=== PATIENT | male | born 2000 | race Hispanic/Latino ===

== ENCOUNTER 2023-12-11 06:23 | Emergency (ER) | payer SELFPAY ==
[2023-12-11 06:27] VITALS: BP 101/71
[2023-12-11 07:06] LABS: % Basophils 0.7 % (0-2); % Eosinophils 4.7 % (0-6); % Immature Granulocytes 0.2 % (0-0.5); % Monocytes 6.7 % (1.7-9.3); % Neutrophils 47.7 % (42.2-75.2); Absolute Eosinophils 0.3 10^3/uL (0-0.7); Absolute Lymphocytes 2.3 10^3/uL (1.2-3.4); Absolute Monocytes 0.4 10^3/uL (0.1-0.6); Absolute Neutrophils 2.8 10^3/uL (1.4-6.5); Hemoglobin 14.3 g/dL (13.0-18.0); Mean Corp Hgb Conc. 35.8 g/dL (33.0-37.0); Mean Corpuscular Hgb 30.8 pg (27.0-31.0); Mean Platelet Volume 11.1 fL (7.4-10.4); Nucleated Red Blood Cells % 0 % (-); Platelet Count 187 10^3/uL (130-400); Red Blood Cell Count 4.65 10^6/uL (4.70-6.10); Red Cell Dist. Width 12.3 % (11.5-14.5); White Blood Cell Count 5.8 10^3/uL (4.8-10.8)
[2023-12-11 07:15] LABS: ALT (SGPT) 14 U/L (0-50); AST (SGOT) 26 U/L (17-59); Albumin 4.8 g/dl (3.5-5.0); Alkaline Phosphatase 66 U/L (38-126); Blood Urea Nitrogen 20 mg/dl (9-20); Calcium 9.3 mg/dl (8.4-10.2); Carbon Dioxide 22 mmol/L (22-30); Chloride 105 mmol/L (98-107); Glucose 118 mg/dl (70-99); Potassium 3.7 mmol/L (3.5-5.1); Sodium 137 mmol/L (135-145); Total Bilirubin 0.7 mg/dl (0.2-1.3); eGFR > 60.00
--- NOTE | 2023-12-11 07:15 | ED.GENMED ---
History of Present Illness
General
Chief Complaint: Dehydration Symptoms
Source: patient
Time Seen by Provider: 12/11/23 07:02
History of Present Illness
History of Present Illness:
23-year-old male presents to the emergency room complaining of generalized weakness, headache, body aches. Patient works outside and initially believed he was suffering from dehydration and heat exhaustion. He went home early from work 2 days ago.
Since then he has been drinking a lot of fluid, taking Tylenol and expect he will be feeling better. However he continues to feel the above symptoms today prompting his visit to the ER. Patient denies any significant medical issue. He is not
taking any prescription medications.
Past History
Past History
ED Past Medical History: Asthma and Other (Migraine headaches, Concussion X 2, Subdural hematoma)
ED Past Surgical History: Appendectomy
Social History
Tobacco: Vaping
Alcohol: None
Drug: None
Personal: Single
Living: with family
Employment: Student
Family History
Family History: Hypertension ( father)
Phy Exam
Physical Exam
Physical Exam:
General: Awake, Alert, Oriented X3. No acute distress.
Vitals: unremarkable
Head: Atraumatic
Eyes: Pupils equal, EOMI
Throat: Airway intact, no exudates
Neck: Trachea midline
Lungs: Clear and equal b/l
Heart: Regular rate, no murmurs
Abd: Soft, Nontender, No pulsatile mass
Neuro: Nonfocal
Skin: Warm, dry, no rash
Extremities: pulses equal b/l, no edema
Course
Orders/Labs/Results
Orders:
Orders
12/11/23 06:34
COVID-19 Antigen Urgent
Source: Nasal Swab
Complete Blood Count/With Diff Urgent
Comprehensive Metabolic Panel Urgent
Creatine Phosphokinase Urgent
Comment: ADD ON
12/11/23 07:15
0.9% Sodium Chloride 1000 ml [Nss] 1,000 ml IV BOLUS
Ketorolac [Toradol] 15 mg IV NOW STA
12/11/23 07:16
Add On- LAB Urgent
Tests Added?: cpk
Abnormal Lab Results
12/11/23
06:34
RBC 4.65 L 10^6/uL
(4.70-6.10)
MPV 11.1 H fL
(7.4-10.4)
Glucose 118 H mg/dl
(70-99)
12/11/23 06:34
12/11/23 06:34
Vital Signs
Initial and Last Documented VS:
Initial Vital Signs
Temp Pulse Resp BP Pulse Ox
97.9 F 65 20 101/71 100
12/11/23 06:27 12/11/23 06:27 12/11/23 06:27 12/11/23 06:27 12/11/23 06:27
Last Documented Vital Signs
Temp Pulse Resp BP Pulse Ox
97.9 F 72 16 108/54 99
12/11/23 06:27 12/11/23 09:00 12/11/23 09:00 12/11/23 09:00 12/11/23 09:00
MDM/Problems Addressed
Differential Diagnosis Includes:
Dehydration, heat exhaustion, COVID, other viral illness
MDM/Problems Addressed:
Patient appears nontoxic. His labs are all reassuring. COVID is negative. He feels somewhat better after Toradol and IV hydration. Unclear if he has a minor viral illness or this just exhausted from working out in the heat. No rash to suggest
Lyme. No known exposures. Patient stable for discharge at this time follow-up as an outpatient
*Pulse Oximetry
Patient hypoxic: no
*Critical Care Note
Total Time (30-74mins, 75-104mins- exclusive of procedures): Not Applicable
ED Attending Note
-
Portions of this chart may have been created with voice recognition software.� Occasional wrong word or��sound alike� substitutions may have occurred due to the inherent limitations of voice recognition software.
Discharge Plan
Departure
Patient Disposition: Home (Routine Discharge)
Date of Disposition: 12/11/23
Time of Disposition: 08:32
Patient with high blood pressure during this ER visit?: No
Condition: Good
Discharge Problem:
Heat exhaustion
Instructions: Heat Exhaustion and Heat Stroke (DC)
Prescriptions:
No Action
acetaminophen 500 mg Tablet
1,000 mg PO Q6H PRN (Reason: mild pain/fever)
albuterol sulfate [ProAir HFA] 90 mcg/actuation HFA aerosol inhaler
1 puff INHALATION R Q4 PRN (Reason: sob)
Referrals:
NONE,* [Family Provider] -
Stand Alone Forms: Return to Work
Interventions
Interventions:
*Risk Screen - Suicide Last Done: 12/11/23 06:27
*General Assessment Last Done: 12/11/23 06:27
*Neglect/Abuse Screening Last Done: 12/11/23 06:27
ED- Fall Risk Assessment Last Done: 12/11/23 06:27
*ED COVID-19 Vaccine History Last Done: 12/11/23 06:27
*Nursing Disposition Last Done: 12/11/23 09:54
ED- Cardiac Assessment Last Done: 12/11/23 07:35
ED- Neurological Assessment Last Done: 12/11/23 07:35
ED- Pulmonary Assessment Last Done: 12/11/23 07:35
Discharge Date and Time
Discharge Date/Time: 12/11/23 09:54
Print Language: DIVEHI
[2023-12-11 07:18] LABS: COVID-19 Antigen Negative (Negative)
[2023-12-11] MEDS: TORADOL 15 MG IV (07:26)
[2023-12-11] MEDS: NSS 1000 IV (07:31)
[2023-12-11 07:56] LABS: Creatine Phosphokinase 119 U/L (55-170)
[2023-12-11 08:00] VITALS: BP 115/67
[2023-12-11 09:00] VITALS: BP 108/54
== END 2023-12-11 09:54 | disposition home or self-care (01) ==
LOC: EMR 06:23
PROVIDERS: EMERGENCY PHYSICIAN Emergency Medicine
DX: T67.5XXA Heat exhaustion, unspecified, initial encounter (principal); X30.XXXA Exposure to excessive natural heat, initial encounter; F17.290 Nicotine dependence, other tobacco product, uncomplicated
CPT/HCPCS: 99284; 96374; 96361; 80053; 82550; 85025; 87811; 99285

== ENCOUNTER 2024-01-15 13:06 | Emergency (ER) | payer BC, SELFPAY ==
[2024-01-15 13:11] VITALS: BP 116/81
--- NOTE | 2024-01-15 13:46 | ED.GENMED ---
History of Present Illness
General
Chief Complaint: Breathing Problem
Source: patient
Exam Limitations: none
Time Seen by Provider: 01/15/24 13:26
Nursing documentation reviewed up to this point in time: agreed with
History of Present Illness
History of Present Illness:
Patient is a 23-year-old male who presents to the ER for evaluation. Patient reports he has asthma and for the past month he has had issues with asthma but but this morning despite using inhalers he had a lot of difficulty breathing. He does have
coughing episodes. He denies any runny nose sore throat. 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 Presently he is trying to find a family doctor heat. He only uses a rescue inhaler when he was a child he did have any steroid inhaler
as well. He denies any recent illness fever chills. He used his inhaler multiple times a day.
He is allergic to Decadron but cannot tolerate oral prednisone.
Past History
Past History
ED Past Medical History: Asthma and Other (Migraine headaches, Concussion X 2, Subdural hematoma)
ED Past Surgical History: Appendectomy
Social History
Tobacco: Vaping
Alcohol: None
Drug: None
Personal: Single
Living: with family
Employment: Student
Family History
Family History: Hypertension ( father)
Review of Systems
Review of Systems
Allergies reviewed?: Yes
Constitutional: Reports no symptoms; Denies fever, fatigue or chills
Respiratory: Reports cough and trouble breathing
Cardiac: Reports no symptoms
ABD/GI: Reports no symptoms
: Reports no symptoms
Musculoskeletal: Reports no symptoms
Skin: Reports no symptoms; Denies rash
Neurological: Reports no symptoms
Psychiatric: Reports no symptoms
Phy Exam
General Physical Exam
General Presentation: no apparent distress
General age: appears stated age
General Skin: warm and dry
General Habitus: normal
General Mental: alert
General Hydration: appears well hydrated
Cardiovascular Exam
Cardiovascular Exam: regular rate/rhythm, no murmur and normal peripheral pulses
Pulmonary Exam
Pulmonary Exam: no respiratory distress and other (slight insp wheezing b/l )
Neurological Exam
Neurological Exam: alert and oriented x3
Musculoskeletal Exam
Musculoskeletal Exam: full ROM
Skin Exam
Skin Exam: normal color and warm/dry
Psychiatric Exam
Psychiatric Exam: normal mood/affect
Course
Orders/Labs/Results
Orders:
Orders
01/15/24 13:45
Ipratropium/Albuterol Sulfate [Duoneb] 3 ml INH R NOW STA
Prednisone [Deltasone] 50 mg PO NOW STA
01/15/24 14:52
Albuterol Nebs [Ventolin Nebules] 2.5 mg INH R NOW STA
01/15/24 16:13
Albuterol Nebs [Ventolin Nebules] 2.5 mg INH R NOW STA
Vital Signs
Initial and Last Documented VS:
Initial Vital Signs
Temp Pulse Resp BP Pulse Ox
98.2 F 71 16 116/81 99
01/15/24 13:11 01/15/24 13:11 01/15/24 13:11 01/15/24 13:11 01/15/24 13:11
Last Documented Vital Signs
Temp Pulse Resp BP Pulse Ox
98.2 F 66 17 116/81 98
01/15/24 13:11 01/15/24 16:30 01/15/24 16:30 01/15/24 13:11 01/15/24 16:30
MDM/Problems Addressed
Differential Diagnosis Includes:
Not limited to asthma exacerbation, bronchitis viral syndrome
MDM/Problems Addressed:
Symptoms are consistent with asthma exacerbation. Patient works outside and has been having issues with asthma for the past several days that his symptoms have worsened. He presents to the ER however awake alert no acute distress afebrile
nonhypoxic nontachycardic slight wheeze. Patient did use his albuterol inhaler at home he was given several nebulizers here in the ER feeling better. He was given his oral prednisone. He has an allergy to Decadron but tolerates oral prednisone
well. This was sent to his pharmacy for the next 5 days.
*Critical Care Note
Total Time (30-74mins, 75-104mins- exclusive of procedures): Not Applicable
ED Attending Note
-
Portions of this chart may have been created with voice recognition software.� Occasional wrong word or��sound alike� substitutions may have occurred due to the inherent limitations of voice recognition software.
Discharge Plan
Departure
Patient Disposition: Home (Routine Discharge)
Date of Disposition: 01/15/24
Time of Disposition: 17:39
Patient with high blood pressure during this ER visit?: No
Condition: Fair
Covid-19: Not Applicable
Discharge Problem:
Asthma exacerbation
Instructions: Asthma, Adult (DC)
Prescriptions:
New
prednisone 50 mg tablet
50 mg PO DAILY Qty: 5 0RF
No Action
acetaminophen 500 mg Tablet
1,000 mg PO Q6H PRN (Reason: mild pain/fever)
albuterol sulfate [ProAir HFA] 90 mcg/actuation HFA aerosol inhaler
1 puff INHALATION R Q4 PRN (Reason: sob)
Referrals:
UNKNOWN - PT DOES,NOT KNOW [Family Provider] -
Stand Alone Forms: Return to Work
Activity Restrictions/Additional Instructions:
As discussed continue to use your albuterol inhaler as previously recommended. A prescription for steroids was sent to your pharmacy to take for the next 5 days start this tomorrow. Return if any worsening of symptoms. Follow up with pcp for
further management of your asthma
Discharge Date and Time
Discharge Date/Time: 01/15/24 18:05
Print Language: [place]
[2024-01-15] MEDS: DELTASONE 50 MG PO (13:53)
[2024-01-15] MEDS: DUONEB 3 ML INH (13:53)
[2024-01-15] MEDS: VENTOLIN NEBULES 2.5 MG INH ×2 (14:55→16:28)
== END 2024-01-15 18:00 | disposition home or self-care (01) ==
LOC: EMR 13:06
PROVIDERS: EMERGENCY PHYSICIAN Emergency Medicine
DX: J45.901 Unspecified asthma with (acute) exacerbation (principal); G43.909 Migraine, unspecified, not intractable, without status migrainosus; F17.290 Nicotine dependence, other tobacco product, uncomplicated; Z87.820 Personal history of traumatic brain injury; Z88.8 Allergy status to other drugs, medicaments and biological substances; Z91.048 Other nonmedicinal substance allergy status
CPT/HCPCS: 99284; 94640 ×3

== ENCOUNTER 2024-03-01 11:50 | Emergency (ER) | payer SELFPAY ==
[2024-03-01 11:55] VITALS: BP 99/72
[2024-03-01] MEDS: PERCOCET 5/325 1 TABLET PO (14:02)
[2024-03-01] MEDS: VALIUM 5 MG PO (14:03)
--- NOTE | 2024-03-01 15:52 | ED.GENMED ---
History of Present Illness
General
Chief Complaint: Musculo-Skeletal Complaint
Source: patient and records
Exam Limitations: none
Time Seen by Provider: 03/01/24 13:01
Nursing documentation reviewed up to this point in time: agreed with
History of Present Illness
History of Present Illness:
Patient is a 23-year-old male who presents to the emergency department complaining of right-sided neck pain and an inability to move his head without pain. Patient was fine yesterday and woke like this today. Patient denies fever or chills, nasal
congestion, sore throat or cough. Patient denies any ear pain, decreased hearing or tinnitus. Patient denies any upper extremity weakness, numbness or paresthesias. Patient denies any back or chest pain. Patient denies any GI or symptoms.
Patient denies any recent illnesses or injuries. Patient denies any previous history of similar episodes. 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 Patient denies any difficulty swallowing.
Past History
Past History
ED Past Medical History: Asthma and Other (Migraine headaches, Concussion X 2, Subdural hematoma)
ED Past Surgical History: Appendectomy
Social History
Tobacco: Vaping
Alcohol: None
Drug: None
Personal: Single
Living: with family
Employment: Student
Family History
Family History: Hypertension ( father)
Review of Systems
Review of Systems
All Other Systems: ROS reviewed and negative except as documented in HPI and ROS
Constitutional: Reports no symptoms
EENT: Reports no symptoms
Respiratory: Reports no symptoms
Cardiac: Reports no symptoms
ABD/GI: Reports no symptoms
: Reports no symptoms
Musculoskeletal: Reports neck pain
Skin: Reports no symptoms
Neurological: Reports no symptoms
Hematologic/Lymphatic: Reports no symptoms
Phy Exam
Physical Exam
Physical Exam:
Physical Exam
General: moderate distress distress, alert and appropriate, well nourished, well hydrated
HENT: Normocephalic atraumatic as well as nontender, no lymphadenopathy, no thyromegaly. Oropharynx is clear. Dentition intact and clear.
Eyes: Clear sclera, conjuctiva without injection
Heart: Regular rhythm and rate. No S3, S4. No murmur. No NVD, bruit
Lungs: No respiratory distress, no stridor, lung sounds clear and equal bilaterally
Abdomen: Soft, nontender
Neuro: Alert and oriented x 3, CN II - XII intact, no motor focality, no cerebellar dysfunction, sensory intact
Skin: no rash
Psychiatric: well kept. interactive and cooperative
Extremities: No edema, cyanosis, tenderness, Good and equal peripheral pulses.
Musculoskeletal: No thoracic or lumbar spine tenderness or deformity. No midline tenderness of the cervical spine however significant spasm of the paravertebral muscles on the right of the cervical spine as well as into the trapezius. No
increase with movement or right upper extremities. Patient's range of motion is severely restricted especially with continued rotation to the left or any rotation to the right past midline.
Course
Orders/Labs/Results
Orders:
Orders
03/01/24 13:28
Diazepam [Valium] 5 mg PO NOW STA
Oxycodone/Acetaminophen [Percocet 5/325] 1 tablet PO NOW STA
Vital Signs
Initial and Last Documented VS:
Initial Vital Signs
Temp Pulse Resp BP Pulse Ox
98.1 F 75 18 99/72 100
03/01/24 11:55 03/01/24 11:55 03/01/24 11:55 03/01/24 11:55 03/01/24 11:55
Last Documented Vital Signs
Temp Pulse Resp BP Pulse Ox
98.1 F 75 18 99/72 100
03/01/24 11:55 03/01/24 11:55 03/01/24 11:55 03/01/24 11:55 03/01/24 11:55
*Radiology
Radiology exam reviewed: other (Not applicable)
*Pulse Oximetry
Patient hypoxic: no
*EKG
Interpreted by ED Provider?: NA
*Pan Devulcanizer Interpretation
Rate: Pan Devulcanizer- N/A
*Critical Care Note
Total Time (30-74mins, 75-104mins- exclusive of procedures): Not Applicable
Update Note
Update Note:
Patient is feeling somewhat better and has better range of motion. Continued no bony tenderness.
ED Attending Note
-
Portions of this chart may have been created with voice recognition software.� Occasional wrong word or��sound alike� substitutions may have occurred due to the inherent limitations of voice recognition software.
Discharge Plan
Departure
Patient Disposition: Home (Routine Discharge)
Date of Disposition: 03/01/24
Time of Disposition: 15:56
Patient with high blood pressure during this ER visit?: No
Covid-19: Not Applicable
Discharge Problem:
Cervical paraspinal muscle spasm
Instructions: Cervical Muscle Strain, Neck Stretches, Neck Pain Exercises
Prescriptions:
New
tramadol 100 mg tablet
100 mg PO Q6H PRN (Reason: pain) Qty: 20 0RF
diazepam [Valium] 2 mg tablet
2 - 4 mg PO TID PRN (Reason: muscle spasm) Qty: 20 0RF
No Action
acetaminophen 500 mg Tablet
1,000 mg PO Q6H PRN (Reason: mild pain/fever)
albuterol sulfate [ProAir HFA] 90 mcg/actuation HFA aerosol inhaler
1 puff INHALATION R Q4 PRN (Reason: sob)
prednisone 50 mg tablet
50 mg PO DAILY Qty: 5 0RF
Referrals:
NONE,* [Family Provider] -
Stand Alone Forms: Return to Work
Activity Restrictions/Additional Instructions:
No lifting or straining for 5 days. Use heat to the area 20 to 30 minutes 4-5 times a day.
Interventions
Interventions:
*Risk Screen - Suicide Last Done: 03/01/24 11:55
*General Assessment Last Done: 03/01/24 11:55
*Neglect/Abuse Screening Last Done: 03/01/24 11:55
ED-Musculoskeletal Assessment Last Done: 03/01/24 13:23
Discharge Date and Time
Print Language: TAMAZIGHT
[2024-03-01 16:20] VITALS: BP 105/68
== END 2024-03-01 16:22 | disposition home or self-care (01) ==
LOC: EMR 11:50
PROVIDERS: EMERGENCY PHYSICIAN Emergency Medicine
DX: M62.838 Other muscle spasm (principal); F17.290 Nicotine dependence, other tobacco product, uncomplicated
CPT/HCPCS: 99283

== ENCOUNTER 2024-04-25 14:08 | Emergency (ER) | payer SELFPAY ==
[2024-04-25 14:10] VITALS: BP 108/77
--- NOTE | 2024-04-25 14:25 | ED.GENMED ---
History of Present Illness
General
Chief Complaint: Cold/Flu/URI Symptoms
Source: patient
Time Seen by Provider: 04/25/24 14:16
History of Present Illness
History of Present Illness:
23yoM with a history of asthma presenting with his significant other for evaluation of flu-like symptoms x 3 days. Symptoms include cough, congestion, fever, and body aches. Cough is productive of green sputum. Tmax around 100. Patient's asthma
has been flaring due to his illness. He has been using his nebulizer every 2 hours. Last treatment was about 45 minutes prior to arrival. He denies any vomiting or diarrhea. He was hospitalized last year for pneumonia. He has a history of prior
admissions for asthma. No prior ICU admissions or intubations. He currently vapes.
Past History
Past History
ED Past Medical History: Asthma and Other (Migraine headaches, Concussion X 2, Subdural hematoma)
ED Past Surgical History: Appendectomy
Social History
Tobacco: Vaping
Alcohol: None
Drug: None
Personal: Single
Living: with family
Employment: Student
Family History
Family History: Hypertension ( father)
Phy Exam
General Physical Exam
General Presentation: well appearing and no apparent distress
General age: appears stated age
General Skin: warm and dry
General Habitus: normal
General Mental: alert
ENT Exam
ENT Exam: TM's normal, neck supple and normocephalic
Additional ENT: +Nasal congestion
Cardiovascular Exam
Cardiovascular Exam: no murmur and tachycardia
Pulmonary Exam
Pulmonary Exam: no respiratory distress, no rales, no rhonchi and other (Scant expiratory wheezes. Speaking in full sentences without difficulty. )
Neurological Exam
Neurological Exam: alert
Brenda Coma Scale
Eye Opening: Spontaneous
Verbal Response: Oriented
Motor Response: Obeys Commands
GCS Total Score: 15
Skin Exam
Skin Exam: normal color and warm/dry
Psychiatric Exam
Psychiatric Exam: normal mood/affect
Course
Orders/Labs/Results
Orders:
Orders
04/25/24 14:23
0.9% Sodium Chloride 500 ml [Nss] 500 ml IV BOLUS
Ketorolac [Toradol] 15 mg IV NOW STA
04/25/24 14:24
CR Chest - 2 Views Urgent
Comment:
Reason For Exam: Cough
04/25/24 14:25
Cardiac Monitoring- Treatment ONCE
04/25/24 14:38
COVID-19 Antigen Urgent
Source: Nasal Swab
Complete Blood Count/With Diff Urgent
Comprehensive Metabolic Panel Urgent
Influenza A+B Rapid Molecular Urgent
LUDMILA Source: Nasal Swab
Specimen Description:
04/25/24 17:13
Doxycycline [Vibramycin] 100 mg PO NOW STA
Prednisone [Deltasone] 50 mg PO NOW STA
04/25/24 17:41
Ipratropium/Albuterol Sulfate [Duoneb] 3 ml .ROUTE .STK-MED ONE
04/25/24 17:42
Ipratropium/Albuterol Sulfate [Duoneb] 3 ml INH R NOW ONE
Abnormal Lab Results
04/25/24
14:38
WBC 14.5 H 10^3/uL
(4.8-10.8)
RBC 4.67 L 10^6/uL
(4.70-6.10)
MCH 31.3 H pg
(27.0-31.0)
Abs Immat Gran (auto) 0.1 H 10^3/uL
(0-0.05)
Absolute Neuts (auto) 11.6 H 10^3/uL
(1.4-6.5)
Absolute Monos (auto) 1.1 H 10^3/uL
(0.1-0.6)
Neutrophils % 80.1 H %
(42.2-75.2)
Lymphocytes % 10.6 L %
(20.5-51.1)
04/25/24 14:38
04/25/24 14:38
Vital Signs
Initial and Last Documented VS:
Initial Vital Signs
Temp Pulse Resp BP Pulse Ox
99.6 F 128 16 108/77 92
04/25/24 14:10 04/25/24 14:10 04/25/24 14:10 04/25/24 14:10 04/25/24 14:10
Last Documented Vital Signs
Temp Pulse Resp BP Pulse Ox
99.8 F 116 19 109/69 95
04/25/24 14:39 04/25/24 14:39 04/25/24 14:39 04/25/24 14:39 04/25/24 14:39
MDM/Problems Addressed
Differential Diagnosis Includes:
23yoM here with flu-like symptoms x 3 days. C/o cough, congestion, f/c. Hx of asthma and has been using nebs frequently. Temp 99.6 on arrival. HR 128. Remainder of vitals stable. He is well appearing in no distress. Nasal congestion noted on exam
with scant wheezes. No signs of respiratory distress noted. Differential diagnosis includes but is not limited to: viral illness, bronchitis, pneumonia, asthma exacerbation
Initial ED plan: Check CBC, CMP, COVID/flu swab, and CXR. IV Toradol and fluid bolus for symptoms.
*Critical Care Note
Total Time (30-74mins, 75-104mins- exclusive of procedures): Not Applicable
Update Note
Update Note:
Labs reveal a leukocytosis with a white count of 14.5. Remainder of labs unremarkable. COVID/flu swab negative. I reviewed chest x-ray. There is a possible infiltrate noted to the left lower lobe, formal radiology read pending. Patient denies
any shortness of breath on reassessment and oxygen saturation is 96%. No indication for hospitalization at this time. Will start on a course of doxycycline and prednisone. Refill provided for albuterol nebulizer solution. Advised follow-up with
PCP and strict ED return precautions discussed. He is in agreement with plan and was discharged in stable condition.
ED Attending Note
-
Portions of this chart may have been created with voice recognition software.� Occasional wrong word or��sound alike� substitutions may have occurred due to the inherent limitations of voice recognition software.
Discharge Plan
Departure
Patient Disposition: Home (Routine Discharge)
Date of Disposition: 04/25/24
Time of Disposition: 17:14
Patient with high blood pressure during this ER visit?: No
Discharge Problem:
Acute asthma exacerbation, Community acquired pneumonia
Instructions: Asthma in adults
Prescriptions:
New
prednisone 50 mg tablet
50 mg PO DAILY Qty: 4 0RF
doxycycline hyclate 100 mg capsule
100 mg PO BID Qty: 13 0RF
albuterol sulfate 2.5 mg /3 mL (0.083 %) solution for nebulization
2.5 mg inhalation Q6H PRN (Reason: shortness of breath or wheezing) Qty: 90 0RF
No Action
acetaminophen 500 mg Tablet
1,000 mg PO Q6H PRN (Reason: mild pain/fever)
albuterol sulfate [ProAir HFA] 90 mcg/actuation HFA aerosol inhaler
1 puff INHALATION R Q4 PRN (Reason: sob)
prednisone 50 mg tablet
50 mg PO DAILY Qty: 5 0RF
tramadol 100 mg tablet
100 mg PO Q6H PRN (Reason: pain) Qty: 20 0RF
diazepam [Valium] 2 mg tablet
2 - 4 mg PO TID PRN (Reason: muscle spasm) Qty: 20 0RF
Referrals:
[facility] [Provider Group]
[facility] [Outside]
UNKNOWN - PT DOES,NOT KNOW [Family Provider] -
Stand Alone Forms: Return to Work
Activity Restrictions/Additional Instructions:
Take antibiotics and prednisone as prescribed. Continue using inhaler and nebulizer treatments as needed.
Drink plenty of fluids. Take Tylenol and ibuprofen as needed for fevers/body aches.
Please follow-up with a family doctor. Return to the ER with any worsening symptoms or trouble breathing.
Interventions
Interventions:
*Risk Screen - Suicide Last Done: 04/25/24 14:10
*General Assessment Last Done: 04/25/24 14:10
*Neglect/Abuse Screening Last Done: 04/25/24 14:10
ED- Fall Risk Assessment Last Done: 04/25/24 14:25
*Nursing Disposition Last Done: 04/25/24 17:39
ED- Pulmonary Assessment Last Done: 04/25/24 14:25
Discharge Date and Time
Discharge Date/Time: 04/25/24 18:09
Print Language: TAJIK
[2024-04-25] MEDS: NSS 500 IV (14:38)
[2024-04-25] MEDS: TORADOL 15 MG IV (14:38)
[2024-04-25 14:39] VITALS: BP 109/69
[2024-04-25 14:40] VITALS: BMI 18.9
[2024-04-25 15:02] LABS: % Basophils 0.3 % (0-2); % Eosinophils 0.9 % (0-6); % Immature Granulocytes 0.3 % (0-0.5); % Lymphocytes 10.6 % (20.5-51.1); % Monocytes 7.8 % (1.7-9.3); % Neutrophils 80.1 % (42.2-75.2); Absolute Eosinophils 0.1 10^3/uL (0-0.7); Absolute Immature Granulocytes 0.1 10^3/uL (0-0.05); Absolute Lymphocytes 1.5 10^3/uL (1.2-3.4); Absolute Monocytes 1.1 10^3/uL (0.1-0.6); Absolute Neutrophils 11.6 10^3/uL (1.4-6.5); Hematocrit 41.6 % (39.0-52.0); Hemoglobin 14.6 g/dL (13.0-18.0); Mean Corp Hgb Conc. 35.1 g/dL (33.0-37.0); Mean Corpuscular Hgb 31.3 pg (27.0-31.0); Mean Corpuscular Volume 89.1 fL (80.0-94.0); Mean Platelet Volume 9.7 fL (7.4-10.4); Nucleated Red Blood Cells % 0 % (-); Platelet Count 236 10^3/uL (130-400); Red Blood Cell Count 4.67 10^6/uL (4.70-6.10); White Blood Cell Count 14.5 10^3/uL (4.8-10.8)
[2024-04-25 15:19] LABS: COVID-19 Antigen Negative (Negative)
[2024-04-25 15:24] LABS: ALT (SGPT) 17 U/L (0-50); AST (SGOT) 25 U/L (17-59); Albumin 4.8 g/dl (3.5-5.0); Alkaline Phosphatase 73 U/L (38-126); Blood Urea Nitrogen 15 mg/dl (9-20); Calcium 9.5 mg/dl (8.4-10.2); Carbon Dioxide 24 mmol/L (22-30); Chloride 103 mmol/L (98-107); Estimated Creatinine Clearance 118 ml/min; Glucose 96 mg/dl (70-99); Sodium 142 mmol/L (135-145); Total Bilirubin 1.3 mg/dl (0.2-1.3); Total Protein 7.7 g/dl (6.3-8.2); eGFR > 60.00
--- NOTE | 2024-04-25 15:24 | EDRN ---
Patient reports he does not have PCP and uses sister's nebulizer. Patient reports currently waiting to receive insurance card in the mail.
RN provided education on the following:
- importance of having a PCP to manage healthcare
- importance of maintaining a healthy lifestyle
- importance of healthy sleep cycle (sleeping 6-8 hours as opposed to only sleeping 3-4 hours at night d/t working 2 jobs)
- importance of hydration and increasing water consumption
- importance of eating a well balanced diet, including lean proteins, fruits and vegetables, limit processed foods
Patient and family member at bedside, verbalized understanding.
[2024-04-25] MEDS: DELTASONE 50 MG PO (17:35)
[2024-04-25] MEDS: VIBRAMYCIN 100 MG PO (17:35)
[2024-04-25] MEDS: DUONEB 3 ML INH (17:42)
== END 2024-04-25 18:09 | disposition home or self-care (01) ==
LOC: EMR 14:08
PROVIDERS: Physician Assistant; EMERGENCY PHYSICIAN Emergency Medicine
DX: J45.901 Unspecified asthma with (acute) exacerbation (principal); J18.9 Pneumonia, unspecified organism; F17.290 Nicotine dependence, other tobacco product, uncomplicated
CPT/HCPCS: 94640; 96374; 96361; 99284; 71046; 80053; 85025; 87502; 87811